=== PATIENT | female | born 1965 | race Two or more races ===

== ENCOUNTER 2021-04-14 08:40 | Inpatient (IN) | payer OTHER ==
[~2021-04-14] VITALS: Ht 165.1 cm; Wt 96.5 kg
--- NOTE | 2021-04-14 09:00 | NUR ---
BP TAKEN X 2 ON R ARM, X 2 L ARM. HTN ON LEFT, HYPOTENSION ON R ARM. ERP NOTIFIED.
--- NOTE | 2021-04-14 09:10 | NUR ---
MD and RN assessments completed.
--- NOTE | 2021-04-14 09:15 | NUR ---
Pt states she has burning when she urinates with RLQ and R flank pain. LUE BP in room 104/52, RUE BP in room is 92/51, RA sats between 88-91% so 2L/min O2 via NC started.
[2021-04-14] MEDS ORDERED: SODIUM CHLORIDE FLUSH 10ML SYR IVF ONE (09:30)
[2021-04-14] MEDS ORDERED: SODIUM CHLORIDE 0.9% 1,000ML IVBOLUS ONE ×3 (09:30→14:30)
[2021-04-14 09:52] LABS: BASOPHILS % (AUTO) 1 % (0-1); EOSINOPHILS % (AUTO) 0 % (1-7); LYMPHOCYTES % (AUTO) 9 % (22-44); MEAN CORPUSCULAR HEMOGLOBIN 28.5 pg (27.0-34.8); MEAN CORPUSCULAR HGB CONC 34.5 g/dL (32.4-35.8); MEAN PLATELET VOLUME 7.4 fL (7.4-10.4); MONOCYTES % (AUTO) 11 % (2-9); NEUTROPHILS % (AUTO) 78 % (42-75); PLATELET COUNT 268 x10^3/uL (130-400); RED BLOOD COUNT 4.84 x10^6/uL (3.82-5.3); RED CELL DISTRIBUTION WIDTH 13.3 % (9.6-15.2)
[2021-04-14 10:02] LABS: ALANINE AMINOTRANSFERASE 38 U/L (12-78); ALBUMIN 3.1 g/dL (3.4-5.0); ANION GAP 7 mmol/L (5-15); CALCIUM 9.1 mg/dL (8.5-10.1); CHLORIDE 106 mmol/L (98-107); CREATININE 0.64 mg/dL (0.55-1.02)
[2021-04-14 10:04] LABS: PROTHROMBIN TIME 10.7 Seconds (9.6-11.5)
[2021-04-14 10:05] LABS: ALKALINE PHOSPHATASE 98 U/L (45-117); BILIRUBIN,TOTAL 0.6 mg/dL (0.2-1.0); TOTAL PROTEIN 7.7 g/dL (6.4-8.2)
[2021-04-14 10:16] LABS: MICROSCOPIC INDICATED
[2021-04-14] MEDS ORDERED: IBUPROFEN 200 MG TABLET PO ONE (10:30)
[2021-04-14] MEDS ORDERED: IBUPROFEN 200 MG TABLET ONE (11:00)
[2021-04-14] MEDS ORDERED: CEFTRIAXONE 2 GM in DEXTROSE 5% 50 ML IVPB ONE (11:00)
--- NOTE | 2021-04-14 11:49 | NUR ---
rechjaiden completed. Second liter NS ordered. Christina meade completed. Pt ordered for CT at this time as well. Awaiting milking machine technician to come get her.
--- NOTE | 2021-04-14 12:10 | NUR ---
Pt returned from CT. Tech states IV site accidentally pulled while in CT and new IV started by anesthesiology tech on L arm before coming back. Site assessed to be benign.
--- NOTE | 2021-04-14 13:10 | NUR ---
at bedside for recheck.
--- NOTE | 2021-04-14 13:41 | NUR ---
Road test shows pt to be dizzy after about 2 minutes walking with RA sats 90% and repeat BP while still dangling to 89/46 with HR still SR at 72. MD notified. Pt assisted back into bed and O2 reapplied at 2L/min
--- NOTE | 2021-04-14 14:07 | NUR ---
MD note on ED board states pt is to be admitted today.
--- NOTE | 2021-04-14 14:24 | NUR ---
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 CALLED [facility], SPOKE WITH ERIKA CRUZ SUP. STATED THEY CAN NOT ACCEPT TRANSFERS AT THIS TIME THEY ARE FULL. SPOKE WITH KAROL AT [facility] WHO DENIED TRANSFER OF PT THEIR CARE CAN BE MANAGED HERE.
--- NOTE | 2021-04-14 14:35 | NUR ---
3rd NS liter started for continued low BP per Dr. Capps. Pt aware of pending admission.
--- NOTE | 2021-04-14 14:53 | NUR ---
report received from Edda SANDOVAL
--- NOTE | 2021-04-14 14:53 | NUR ---
Report given to LORI Palomino and tg tranferred.
[2021-04-14] MEDS ORDERED: SODIUM CHLORIDE FLUSH 10ML SYR IVF PRN (15:00)
--- NOTE | 2021-04-14 15:26 | NUR ---
pt resting in bed, a&o, resps even and unlabored, nadn. fluids infusing, admit orders received.
--- NOTE | 2021-04-14 15:59 | NUR ---
pt up to bedside commode, voided approprioately, vss, nadn.
--- NOTE | 2021-04-14 16:30 | NUR ---
Dr. Peres at bedside for eval.
[2021-04-14] MEDS ORDERED: TEMAZEPAM 15 MG CAPSULE PO PRN (17:00)
[2021-04-14] MEDS ORDERED: ONDANSETRON 2MG/ML, 2ML IVPush PRN (17:00)
[2021-04-14] MEDS ORDERED: KETOROLAC 30 MG/1 ML IV PRN (17:00)
[2021-04-14] MEDS ORDERED: TRAZODONE 50MG TABLET PO PRN (17:00)
[2021-04-14] MEDS ORDERED: PHENAZOPYRIDINE 100 MG TABLET PO PRN (17:30)
--- NOTE | 2021-04-14 17:31 | NUR ---
attempt to call report to receiving RN in room 467 2x, on hold for 5 min.
--- NOTE | 2021-04-14 17:55 | NUR ---
report given to receiving RN Mari in 467
--- NOTE | 2021-04-14 18:40 | NUR ---
pt transferred ot floor by this RN at this time
[2021-04-14 18:45] VITALS: BP 101/67
[2021-04-14] MEDS: ENOXAPARIN 40 MG/0.4 ML SQ SCH (20:22)
[2021-04-14] MEDS: SODIUM CHLORIDE 0.9% 1,000 ML IV SCH (20:24)
[2021-04-14] MEDS: ACETAMINOPHEN 325 MG TABLET PO PRN (20:24)
[2021-04-14 20:48] VITALS: BP 98/53
[2021-04-15 02:40] VITALS: BP 90/55
[2021-04-15] MEDS: SODIUM CHLORIDE 0.9% 1,000 ML IV SCH (02:44)
[2021-04-15 05:27] LABS: BASOPHILS % (AUTO) 0 % (0-1); EOSINOPHILS % (AUTO) 2 % (1-7); LYMPHOCYTES % (AUTO) 15 % (22-44); MEAN CORPUSCULAR HEMOGLOBIN 28.7 pg (27.0-34.8); MEAN CORPUSCULAR HGB CONC 34.2 g/dL (32.4-35.8); MEAN PLATELET VOLUME 7.4 fL (7.4-10.4); MONOCYTES % (AUTO) 17 % (2-9); NEUTROPHILS % (AUTO) 66 % (42-75); PLATELET COUNT 199 x10^3/uL (130-400); RED BLOOD COUNT 4.02 x10^6/uL (3.82-5.3); RED CELL DISTRIBUTION WIDTH 13.4 % (9.6-15.2)
[2021-04-15 05:29] LABS: ANION GAP 5 mmol/L (5-15); CALCIUM 7.6 mg/dL (8.5-10.1); CHLORIDE 112 mmol/L (98-107); CREATININE 0.39 mg/dL (0.55-1.02)
[2021-04-15 07:26] VITALS: BP 101/64
[2021-04-15] MEDS ORDERED: POTASSIUM CHLORIDE 20 MEQ TAB.ER.PRT PO ONE (09:00)
[2021-04-15] MEDS ORDERED: PHENAZOPYRIDINE 200 MG TABLET ONE ×2 (09:38→16:14)
[2021-04-15] MEDS: ACETAMINOPHEN 325 MG TABLET PO PRN ×3 (09:40→20:17)
[2021-04-15] MEDS: PHENAZOPYRIDINE 100 MG TABLET PO SCH ×3 (11:30→20:17)
[2021-04-15] MEDS: CEFTRIAXONE 1,000 MG in DEXTROSE 5% 50 ML IVPB SCH (11:45)
[2021-04-15] MEDS: NS + 20MEQ KCL 1,000 ML IV SCH ×2 (11:45→20:18)
[2021-04-15 14:00] VITALS: BP 106/55
[2021-04-15 18:49] VITALS: BP 99/63
[2021-04-15] MEDS: ENOXAPARIN 40 MG/0.4 ML SQ SCH (20:17)
[2021-04-16 01:58] VITALS: BP 102/63
[2021-04-16 04:01] LABS: ALBUMIN 2.2 g/dL (3.4-5.0); ANION GAP 4 mmol/L (5-15); CHLORIDE 114 mmol/L (98-107)
[2021-04-16] MEDS: ACETAMINOPHEN 325 MG TABLET PO PRN ×2 (04:14→12:48)
[2021-04-16] MEDS: NS + 20MEQ KCL 1,000 ML IV SCH (04:14)
[2021-04-16 04:21] LABS: ALKALINE PHOSPHATASE 85 U/L (45-117)
[2021-04-16 04:23] LABS: ALANINE AMINOTRANSFERASE 37 U/L (12-78); BILIRUBIN,TOTAL 0.3 mg/dL (0.2-1.0); CREATININE 0.43 mg/dL (0.55-1.02)
[2021-04-16 06:47] VITALS: BP 110/72
[2021-04-16] MEDS: PHENAZOPYRIDINE 100 MG TABLET PO SCH (12:47)
[2021-04-16] MEDS: CEFTRIAXONE 1,000 MG in DEXTROSE 5% 50 ML IVPB SCH (12:47)
[2021-04-16 12:57] VITALS: BP 99/65
[2021-04-16] MEDS ORDERED: CEFD300C37 PO (13:54)
[2021-04-16] MEDS ORDERED: PHEN-582 PO (13:55)
[2021-04-16 14:50] VITALS: BP 100/66
== END 2021-04-16 15:29 | disposition home or self-care (01) | DRG 871 ==
LOC: ED 11:50 → EDIP 14:41 → 4NE 18:34
PROVIDERS: ADMIT Internal Medicine; ATTEND Internal Medicine
DX: A41.9 Sepsis, unspecified organism (principal); R65.21 Severe sepsis with septic shock; N10 Acute pyelonephritis; I10 Essential (primary) hypertension; M54.5 Low back pain; R73.9 Hyperglycemia, unspecified; Z66 Do not resuscitate; Z90.710 Acquired absence of both cervix and uterus; Z98.84 Bariatric surgery status
CPT/HCPCS: 36415; 71045; 74176; 80048; 80053; 81001; 83036; 83605; 83735; 84145; 85025; 85610; 85730; 87040; 87077; 87086; 87186; 93005; 96361; 96365; G0378; J0696; J1650; J1885; J3480; J7030